=== PATIENT | female | born 1975 | race Caucasian/White ===

== ENCOUNTER 2019-10-04 13:37 | Day surgery (SDC) | payer OTHER ==
[~2019-10-04] VITALS: Ht 172.7 cm; Wt 98.0 kg
[~2019-10-04 13:37] MED LIST: EFFEXOR XR150 MG PO
--- NOTE | 2019-10-04 14:34 | NUR ---
10/04/19 [facility] [address] PACU ON 2 L VIA NC. PT REACTIVE TO VERBAL STIMULUS AND ANSWERS QUESTIONS APPROPRIATELY. TITRATED TO RA WITH SATS >90%. VSS. PT DENIES PAIN/NAUSEA. ENC PT TO PASS GAS.
--- NOTE | 2019-10-05 13:19 | PATH ---
[facility] [address], [place] [address] Signed SPECIMEN(S): A RECTUM SPECIMEN SOURCE: A. RECTUM CLINICAL HISTORY: Chronic diarrhea, rectal hemorrhage. Rule out normal colon. MICROSCOPIC DESCRIPTION: Sections reveal a biopsy of colonic mucosa. The epithelial surface is intact and has retained mucus secreting ability. The basement membrane is not thickened. The glands are simple and tubular and reach all of the way to the muscularis mucosae. The lamina propria is not expanded and contains a few plasma cells, lymphocytes, and infrequent eosinophils. No acute inflammatory cells, excess intraepithelial lymphocytes, crypt abscesses, areas of fibrosis, granulomas or pseudomembranes are seen. There is no evidence of malignancy or atypia. LJA:cml FINAL PATHOLOGIC DIAGNOSIS: Mucosa, rectum, biopsy: - No microscopic pathologic diagnosis. LJA:cml:C2NR GROSS DESCRIPTION: The specimen, labeled "CK, #1" and "rectum" on the requisition, is received in formalin and consists of two soft pink to crump tissue fragments that measure 0.2 and 0.3 cm and are submitted in toto in cassette (A1). SS (under the direct supervision of a pathologist) The Gross Description was prepared using a voice recognition system. The report was reviewed for accuracy; however, sound-alike word errors, addition and/or deletions may occur. If there is any question about this report, please contact Client Services. PERFORMING LABORATORY: The technical component was performed by Michael Bieker, [address] [place] [id number] ([employer] Audit Clerk: Jaki Chahal MD; CLIA# [id number]). [facility] [address] [address] (CLIA# [id number]). PATIENT NAME: KAT CATALAN PATHOLOGY DATE OF : 71 REPORT #: [id number] PHYSICIAN: DENISE PATHOLOGY PCP: ALLI MOTA PA-C REPORT IS CONFIDENTIAL AND NOT TO BE RELEASED WITHOUT AUTHORIZATION [address] [place] [address] Signed Diagnostician: Jeffy Booker MD Pathologist Electronically Signed 10/05/2019 Copies: ~ PATIENT NAME: KAT CATALAN PATHOLOGY DATE OF : 71 REPORT #: [id number] PHYSICIAN: DENISE GRIJALVA PCP: ALLI MOTA PA-C REPORT IS CONFIDENTIAL AND NOT TO BE RELEASED WITHOUT AUTHORIZATION
--- NOTE | 2019-10-05 13:20 | OR ---
[facility] [address] [place], [place] [address] Signed DATE OF OPERATION: 10/04/2019 SURGEON: Sherley Blair MD PREOPERATIVE DIAGNOSIS: Family history of colon cancer (father age 44). POSTOPERATIVE DIAGNOSIS: Mild proctitis. No evidence of polyps or cancer. PROCEDURE: Total colonoscopy to cecum with biopsy of rectum. ANESTHESIA: Intravenous sedation, fentanyl 150 mcg, Versed 9 mg. INDICATION: This 43-year-old white woman is a patient of LISETTE Youngblood. She works as a nurse at [employer]. She is noted to have undergone colonoscopy at age 28, which was said to be normal. Her father at age 44 of colon cancer. She is here for surveillance colonoscopy understanding the risks of bleeding, infection, and perforation. FINDINGS: The prep was excellent. Complete colonoscopy was undertaken to the cecum. There were no signs of polyps, diverticular formation, colitis, or cancer. There was mild inflammation of the rectum, possibly bowel prep related. A biopsy was taken of the rectum to assess for occult colitis. DESCRIPTION OF PROCEDURE: The patient was brought to the endoscopy suite and placed in lateral decubitus position given intravenous sedation a point of slurred speech and nystagmus. Digital rectal examination was normal. The Olympus video colonoscope was passed in the rectum and manipulated throughout the colon ultimately intubating the cecum itself. The ileocecal valve and appendiceal orifice were normal. The scope was withdrawn from that point. Examination throughout showed no sign of abnormality until the rectum upon retroflexed view, which showed mild proctitis, possibly bowel prep related. Biopsies were obtained. Scope was straightened, withdrawn, and removed. The patient was taken to recovery room in good Electronically Signed By: SHERLEY BLAIR MD 10/05/19 1320 PATIENT NAME: KAT CATALAN OPERATIVE REPORT DATE OF : 71 REPORT #: [id number] PHYSICIAN: SHERLEY BLAIR MD PCP: DONITA RODRIGUEZ PA-C REPORT IS CONFIDENTIAL AND NOT TO BE RELEASED WITHOUT AUTHORIZATION [facility] [address] [place], [place] [address] Signed condition. CONCLUDING DIAGNOSIS: Normal-appearing colon without signs of polyps or diverticular changes. PLAN: Recommend repeat colonoscopy in 5 years based on family history of colon cancer in her father at a young age, sooner if she is having problems of course. She will return to the ongoing care of LISETTE Youngblood. MD REGLA Chambers/CARLOSL /[id number] cc: Donita Rodriguez PA-C Copies: DONITA RODRIGUEZ PA-C ~ Electronically Signed By: SHERLEY BLAIR MD 10/05/19 1320 PATIENT NAME: KAT CATALAN OPERATIVE REPORT DATE OF : 71 REPORT #: [id number] PHYSICIAN: SHERLEY BLAIR MD PCP: DONITA RODRIGUEZ PA-C REPORT IS CONFIDENTIAL AND NOT TO BE RELEASED WITHOUT AUTHORIZATION
== END 2019-10-04 15:10 | disposition home or self-care (01) ==
LOC: OPS 13:37 → DS 13:42 → OPS 15:10
PROVIDERS: Surgery
PROC: 0DBP8ZX Excision of Rectum, Via Natural or Artificial Opening Endoscopic, Diagnostic (ICD-10-PCS; principal; 2019-10-04 14:00)
DX: Z12.11 Encounter for screening for malignant neoplasm of colon (principal); K62.89 Other specified diseases of anus and rectum; K52.9 Noninfective gastroenteritis and colitis, unspecified; F32.9 Major depressive disorder, single episode, unspecified; K21.9 Gastro-esophageal reflux disease without esophagitis; Z79.899 Other long term (current) drug therapy; Z80.0 Family history of malignant neoplasm of digestive organs
CPT/HCPCS: 99153; G0500; J2250; J3010; J7121